=== PATIENT | male | born 1955 | race Caucasian/White ===

== ENCOUNTER 2017-12-13 16:17 | Inpatient (IN) | payer MEDICAID, OTHER ==
[~2017-12-13] VITALS: Ht 175.3 cm; Wt 99.5 kg
[2017-12-13 17:13] LABS: BASOPHILS # (AUTO) 0.5 X10'3 (0-0.2); BASOPHILS % (AUTO) 1.9 % (0-1); EOSINOPHILS # (AUTO) 0.1 X10'3 (0-0.9); EOSINOPHILS % (AUTO) 0.6 % (0-6); HEMATOCRIT 29.5 % (42.0-52.0); HEMOGLOBIN 9.7 g/dl (14.0-17.9); LYMPHOCYTES % (AUTO) 4.1 % (21-51); MEAN CORPUSCULAR HEMOGLOBIN 27.2 PG (27.0-31.0); MEAN CORPUSCULAR HGB CONC 32.8 % (33.0-36.5); MEAN CORPUSCULAR VOLUME 82.9 FL (78-98); MEAN PLATELET VOLUME 8.5 FL (7.4-10.4); MONOCYTES # (AUTO) 1.6 X10'3 (0-0.9); MONOCYTES % (AUTO) 6.7 % (2-12); NEUTROPHILS # (AUTO) 20.9 X10'3 (1.8-7.7); NEUTROPHILS % (AUTO) 86.7 % (42-75); PLATELET COUNT 259 X10'3 (140-440); RED BLOOD COUNT 3.56 X10'6 (4.70-6.10); RED CELL DISTRIBUTION WIDTH 12.9 % (11.5-14.5); WHITE BLOOD COUNT 24.1 X10'3 (4.5-11.0)
[2017-12-13 17:23] LABS: INR 1.1 INR; PROTHROMBIN TIME 11.3 SECONDS (9.0-12.0)
[2017-12-13 17:31] LABS: ALANINE AMINOTRANSFERASE 43 U/L (12-78); ALBUMIN 1.9 G/DL (3.4-5.0); ALBUMIN/GLOBULIN RATIO 0.4 (1.1-1.5); ALKALINE PHOSPHATASE 195 IU/L (46-116); ANION GAP 14 (8-16); ASPARTATE AMINO TRANSFERASE 15 U/L (10-37); BILIRUBIN,TOTAL 0.5 MG/DL (0.1-1.0); BLOOD UREA NITROGEN 57 MG/DL (7-18); BUN/CREATININE RATIO 29.5 (5.4-32.0); CHLORIDE 96 MMOL/L (99-107); CREATININE 1.93 MG/DL (0.60-1.10); GLUCOSE 271 MG/DL (70-104); POTASSIUM 3.5 MMOL/L (3.5-5.1); SODIUM 134 MMOL/L (135-145); TOTAL CARBON DIOXIDE 24.1 MMOL/L (24-32); eGFR 36 ML/MIN
[2017-12-13] MEDS ORDERED: acetaminophen 325mg tablet PO STA (17:41)
[2017-12-13] MEDS ORDERED: vancomycin/NS 1 GM ADD-VANTAGE 250 ML IV ONE (17:45)
[2017-12-13] MEDS ORDERED: piperacillin/tazo 3.375gm/50ml 50 ML IV ONE (17:45)
[2017-12-13] MEDS ORDERED: normal saline 1000ML IV soln IV ONE (17:45)
[2017-12-13] MEDS ORDERED: magnesium 4gm in 100ml NS 100 ML IV PRN (18:00)
[2017-12-13] MEDS ORDERED: mag hydrox/Alum hydrox/simeth 30ml oral suspension PO PRN (18:00)
[2017-12-13] MEDS ORDERED: acetaminophen 325mg tablet PO PRN ×2 (18:00)
[2017-12-13] MEDS ORDERED: HYDROcodone/acetaminophen 5mg/325mg tablet PO PRN (18:00)
[2017-12-13] MEDS ORDERED: potassium Cl 20 mEq SR tablet PO PRN (18:00)
[2017-12-13] MEDS ORDERED: dextrose 50%-water 50ml dispensing syringe IV PRN ×2 (18:00)
[2017-12-13] MEDS ORDERED: MESSAGE TO PHARMACY PO ONE (18:00)
[2017-12-13] MEDS ORDERED: glucagon, human recombinant 1mg kit SUBCUT PRN (18:00)
[2017-12-13] MEDS ORDERED: magnesium Cl slow-release 64mg tablet PO PRN (18:00)
[2017-12-13] MEDS ORDERED: magnesium hydroxide 30ml (MOM) UD suspension PO PRN (18:00)
[2017-12-13] MEDS ORDERED: dextrose ORAL solution 15 GM/59 ML bottle PO PRN ×2 (18:00)
[2017-12-13] MEDS ORDERED: magnesium 1gm/100ml D5W IVPB 100 ML IV PRN (18:00)
[2017-12-13] MEDS ORDERED: ondansetron/PF 4mg/2ml inj IV PRN (18:00)
[2017-12-13] MEDS ORDERED: potassium Cl 40MEQ/NS 500ml 500 ML IV PRN ×2 (18:00)
[2017-12-13] MEDS ORDERED: GABA-534 PO (18:26)
[2017-12-13] MEDS ORDERED: ATOR20TA PO (18:26)
[2017-12-13] MEDS ORDERED: SAXA5TAB PO (18:26)
[2017-12-13] MEDS ORDERED: DULO20CA50 PO (18:26)
[2017-12-13] MEDS ORDERED: SILD20TA2 PO (18:26)
[2017-12-13] MEDS ORDERED: LOSA25TA96 PO (18:26)
[2017-12-13] MEDS ORDERED: CHOL500026 PO (18:26)
[2017-12-13] MEDS ORDERED: GLIM4TAB PO (18:26)
[2017-12-13] MEDS ORDERED: [UNRECOGNIZED DRUG - CODE] TOP (18:26)
[2017-12-13] MEDS ORDERED: METF500T PO (18:26)
[2017-12-13] MEDS: normal saline 1000ml 1,000 ML IV SCH ×3 (18:47→22:11)
[2017-12-13] MEDS: piperacillin-tazo 2.25gm/50ml 50 ML IV SCH (18:47)
[2017-12-13] MEDS ORDERED: vancomycin inj 1,250 MG in normal saline 250ml IV soln 250 ML IV SCH (19:00)
[2017-12-13 19:30] LABS: HEMOGLOBIN A1C 9.9 % (4.5-6.2)
[2017-12-13 19:43] LABS: CLARITY,URINE CLOUDY (Clear); COLOR,URINE YELLOW (Yellow); GLUCOSE, URINE 250 mg/dl (Neg); KETONES,URINE NEGATIVE (Neg); LEUKOCYTE ESTERASE ,URINE NEGATIVE (Neg); NITRITES, URINE NEGATIVE (Neg); OCCULT BLOOD,URINE LARGE (Neg); PH,URINE 5.5 (4.8-8.0); PROTEIN,URINE >=300 mg/dl (Neg)
[2017-12-13 19:49] LABS: UA COLLECTION TYPE URINAL
[2017-12-13 19:54] LABS: CELLULAR CAST 0-4 /LPF (NEGATIVE)
[2017-12-13 19:55] LABS: MUCUS STRANDS FEW /LPF (Neg); RBC,URINE 20-50 /HPF (0-2); SQUAMOUS EPITHELIAL CELL,UR MODERATE /LPF (FEW); WAXY CASTS,URINE 0-3 /LPF (NEGATIVE); WBC,URINE 0-4 /HPF (0-4)
[2017-12-13 19:56] LABS: AMORPHOUS URATES 2+; BACTERIA,URINE FEW /HPF (Neg)
[2017-12-13] MEDS ORDERED: temazepam 15mg capsule PO PRN (21:00)
[2017-12-13] MEDS: atorvastatin 20mg tablet PO SCH (21:32)
[2017-12-13] MEDS: insulin glargine (Lantus) pen - multi-dose SQ SCH (22:19)
[2017-12-13 22:20] VITALS: BP 137/76
[2017-12-13] MEDS: insulin Lispro (HumaLOG) vial - multi-dose SQ SCH (22:20)
[2017-12-13] MEDS: gabapentin 400mg capsule PO SCH (23:31)
[2017-12-14] VITALS: BP 137/76
[2017-12-14] MEDS: piperacillin-tazo 2.25gm/50ml 50 ML IV SCH ×4 (02:29→19:48)
[2017-12-14 05:13] LABS: BASOPHILS % (AUTO) 0 % (0-1); EOSINOPHILS # (AUTO) 0.5 X10'3 (0-0.9); EOSINOPHILS % (AUTO) 2.8 % (0-6); HEMATOCRIT 25.8 % (42.0-52.0); HEMOGLOBIN 8.6 g/dl (14.0-17.9); LYMPHOCYTES # (AUTO) 1.4 X10'3 (1.1-4.8); LYMPHOCYTES % (AUTO) 7.5 % (21-51); MEAN CORPUSCULAR HEMOGLOBIN 27.6 PG (27.0-31.0); MEAN CORPUSCULAR HGB CONC 33.4 % (33.0-36.5); MEAN CORPUSCULAR VOLUME 82.7 FL (78-98); MEAN PLATELET VOLUME 8.5 FL (7.4-10.4); MONOCYTES # (AUTO) 1.3 X10'3 (0-0.9); MONOCYTES % (AUTO) 6.9 % (2-12); NEUTROPHILS # (AUTO) 15.2 X10'3 (1.8-7.7); NEUTROPHILS % (AUTO) 82.8 % (42-75); PLATELET COUNT 206 X10'3 (140-440); RED BLOOD COUNT 3.12 X10'6 (4.70-6.10); RED CELL DISTRIBUTION WIDTH 14.1 % (11.5-14.5); WHITE BLOOD COUNT 18.4 X10'3 (4.5-11.0)
[2017-12-14] MEDS: normal saline 1000ml 1,000 ML IV SCH (05:36)
[2017-12-14 05:42] LABS: ALANINE AMINOTRANSFERASE 33 U/L (12-78); ALBUMIN 1.5 G/DL (3.4-5.0); ALBUMIN/GLOBULIN RATIO 0.3 (1.1-1.5); ALKALINE PHOSPHATASE 171 IU/L (46-116); ANION GAP 11 (8-16); ASPARTATE AMINO TRANSFERASE 16 U/L (10-37); BILIRUBIN,TOTAL 0.4 MG/DL (0.1-1.0); BLOOD UREA NITROGEN 53 MG/DL (7-18); BUN/CREATININE RATIO 31.5 (5.4-32.0); CALCIUM 8.4 MG/DL (8.5-10.1); CHLORIDE 102 MMOL/L (99-107); CHOL/HDL RATIO 5.8 (0.00-4.99); CHOLESTEROL 93 MG/DL (0-200); CREATININE 1.68 MG/DL (0.60-1.10); GLUCOSE 171 MG/DL (70-104); HDL CHOLESTEROL 16 MG/DL (35-60); LDL CHOLESTEROL 63 MG/DL (50-100); MAGNESIUM 1.7 MG/DL (1.5-2.4); POTASSIUM 3.1 MMOL/L (3.5-5.1); SODIUM 137 MMOL/L (135-145); TOTAL CARBON DIOXIDE 23.6 MMOL/L (24-32); TOTAL PROTEIN 5.9 G/DL (6.4-8.2); TRIGLYCERIDES 88 MG/DL (20-135); eGFR 42 ML/MIN
[2017-12-14 08:00] VITALS: BP 137/68
[2017-12-14] MEDS: K and/or MAG REPLACEMENT MC SCH (08:00)
[2017-12-14] MEDS ORDERED: SAXAGLIPTIN HYDROCHLORIDE PO SCH (08:00)
[2017-12-14] MEDS: potassium Cl 20 mEq SR tablet PO PRN ×2 (09:13→16:16)
[2017-12-14] MEDS: losartan 25mg tablet PO SCH (09:13)
[2017-12-14] MEDS: gabapentin 400mg capsule PO SCH ×3 (09:13→23:21)
[2017-12-14] MEDS: duloxetine 20mg capsule.DR PO SCH (09:14)
[2017-12-14] MEDS: insulin Lispro (HumaLOG) vial - multi-dose SQ SCH ×2 (09:25→19:31)
[2017-12-14 11:00] VITALS: BP 102/58
[2017-12-14] MEDS: linagliptin 5mg tablet PO SCH (11:03)
[2017-12-14] MEDS: vancomycin inj 1,250 MG in normal saline 250ml IV soln 250 ML IV SCH ×2 (11:03→20:32)
[2017-12-14 18:00] VITALS: BP 136/67
[2017-12-14] MEDS: lactobacillus rhamnosus 10,000 MMU CELLS/CAPSULE PO SCH (19:48)
[2017-12-14] MEDS: atorvastatin 20mg tablet PO SCH (21:06)
[2017-12-14] MEDS: insulin glargine (Lantus) pen - multi-dose SQ SCH (21:09)
[2017-12-15] VITALS: BP 147/60
[2017-12-15] MEDS: piperacillin-tazo 2.25gm/50ml 50 ML IV SCH ×4 (01:59→20:08)
[2017-12-15] MEDS: normal saline 1000ml 1,000 ML IV SCH ×2 (02:02→13:46)
[2017-12-15 07:01] VITALS: BP 154/73
[2017-12-15] MEDS ORDERED: VANCOMYCIN LEVEL IV ONE (07:30)
[2017-12-15] MEDS: gabapentin 400mg capsule PO SCH ×3 (08:00→23:46)
[2017-12-15] MEDS: K and/or MAG REPLACEMENT MC SCH (08:00)
[2017-12-15] MEDS: duloxetine 20mg capsule.DR PO SCH (08:00)
[2017-12-15] MEDS: losartan 25mg tablet PO SCH (08:00)
[2017-12-15] MEDS: linagliptin 5mg tablet PO SCH (08:00)
[2017-12-15] MEDS: lactobacillus rhamnosus 10,000 MMU CELLS/CAPSULE PO SCH ×2 (08:00→20:07)
[2017-12-15 08:58] LABS: BASOPHILS % (AUTO) 0.1 % (0-1); EOSINOPHILS # (AUTO) 0.5 X10'3 (0-0.9); EOSINOPHILS % (AUTO) 3.5 % (0-6); HEMATOCRIT 26.1 % (42.0-52.0); HEMOGLOBIN 8.7 g/dl (14.0-17.9); LYMPHOCYTES # (AUTO) 1.1 X10'3 (1.1-4.8); LYMPHOCYTES % (AUTO) 7.4 % (21-51); MEAN CORPUSCULAR HEMOGLOBIN 27.4 PG (27.0-31.0); MEAN CORPUSCULAR HGB CONC 33.2 % (33.0-36.5); MEAN CORPUSCULAR VOLUME 82.6 FL (78-98); MEAN PLATELET VOLUME 8.6 FL (7.4-10.4); MONOCYTES # (AUTO) 1.2 X10'3 (0-0.9); MONOCYTES % (AUTO) 7.7 % (2-12); NEUTROPHILS # (AUTO) 12.4 X10'3 (1.8-7.7); NEUTROPHILS % (AUTO) 81.3 % (42-75); PLATELET COUNT 216 X10'3 (140-440); RED BLOOD COUNT 3.16 X10'6 (4.70-6.10); WHITE BLOOD COUNT 15.3 X10'3 (4.5-11.0)
[2017-12-15 09:12] LABS: ALANINE AMINOTRANSFERASE 38 U/L (12-78); ALBUMIN 1.5 G/DL (3.4-5.0); ALBUMIN/GLOBULIN RATIO 0.3 (1.1-1.5); ALKALINE PHOSPHATASE 216 IU/L (46-116); ANION GAP 8 (8-16); ASPARTATE AMINO TRANSFERASE 14 U/L (10-37); BILIRUBIN,TOTAL 0.4 MG/DL (0.1-1.0); BLOOD UREA NITROGEN 43 MG/DL (7-18); BUN/CREATININE RATIO 27.7 (5.4-32.0); CALCIUM 8.3 MG/DL (8.5-10.1); CHLORIDE 106 MMOL/L (99-107); CREATININE 1.55 MG/DL (0.60-1.10); GLUCOSE 80 MG/DL (70-104); MAGNESIUM 1.7 MG/DL (1.5-2.4); POTASSIUM 4.3 MMOL/L (3.5-5.1); SODIUM 141 MMOL/L (135-145); TOTAL CARBON DIOXIDE 27.5 MMOL/L (24-32); TOTAL PROTEIN 6.1 G/DL (6.4-8.2); eGFR 46 ML/MIN
[2017-12-15] MEDS: pantoprazole 40 MG vial IV SCH (09:40)
[2017-12-15] MEDS: vancomycin/NS 1 GM ADD-VANTAGE 250 ML IV SCH ×2 (09:40→22:16)
[2017-12-15 12:20] VITALS: BP 123/65
[2017-12-15] MEDS: insulin Lispro (HumaLOG) vial - multi-dose SQ SCH ×2 (13:57→19:00)
[2017-12-15 18:45] VITALS: BP 202/99
[2017-12-15] MEDS: atorvastatin 20mg tablet PO SCH (20:07)
[2017-12-15 20:13] VITALS: BP 145/82
[2017-12-15] MEDS: insulin glargine (Lantus) pen - multi-dose SQ SCH (20:49)
[2017-12-16] VITALS: BP 152/69
[2017-12-16] MEDS: piperacillin-tazo 2.25gm/50ml 50 ML IV SCH ×4 (02:08→19:07)
[2017-12-16] MEDS: normal saline 1000ml 1,000 ML IV SCH ×2 (04:27→16:16)
[2017-12-16 05:42] LABS: BASOPHILS % (AUTO) 0.1 % (0-1); EOSINOPHILS # (AUTO) 0.5 X10'3 (0-0.9); EOSINOPHILS % (AUTO) 3.2 % (0-6); HEMATOCRIT 26.1 % (42.0-52.0); HEMOGLOBIN 8.7 g/dl (14.0-17.9); LYMPHOCYTES # (AUTO) 1.2 X10'3 (1.1-4.8); LYMPHOCYTES % (AUTO) 7.3 % (21-51); MEAN CORPUSCULAR HEMOGLOBIN 27.6 PG (27.0-31.0); MEAN CORPUSCULAR HGB CONC 33.4 % (33.0-36.5); MEAN CORPUSCULAR VOLUME 82.6 FL (78-98); MEAN PLATELET VOLUME 8.9 FL (7.4-10.4); MONOCYTES # (AUTO) 1.3 X10'3 (0-0.9); MONOCYTES % (AUTO) 7.7 % (2-12); NEUTROPHILS # (AUTO) 13.6 X10'3 (1.8-7.7); NEUTROPHILS % (AUTO) 81.7 % (42-75); PLATELET COUNT 216 X10'3 (140-440); RED BLOOD COUNT 3.17 X10'6 (4.70-6.10); RED CELL DISTRIBUTION WIDTH 14.2 % (11.5-14.5); WHITE BLOOD COUNT 16.6 X10'3 (4.5-11.0)
[2017-12-16 06:12] LABS: ALANINE AMINOTRANSFERASE 34 U/L (12-78); ALBUMIN 1.4 G/DL (3.4-5.0); ALBUMIN/GLOBULIN RATIO 0.3 (1.1-1.5); ALKALINE PHOSPHATASE 245 IU/L (46-116); ANION GAP 10 (8-16); ASPARTATE AMINO TRANSFERASE 13 U/L (10-37); BILIRUBIN,TOTAL 0.3 MG/DL (0.1-1.0); BLOOD UREA NITROGEN 32 MG/DL (7-18); BUN/CREATININE RATIO 20.6 (5.4-32.0); CALCIUM 8.1 MG/DL (8.5-10.1); CHLORIDE 104 MMOL/L (99-107); CREATININE 1.55 MG/DL (0.60-1.10); GLUCOSE 175 MG/DL (70-104); MAGNESIUM 1.5 MG/DL (1.5-2.4); POTASSIUM 4.1 MMOL/L (3.5-5.1); SODIUM 137 MMOL/L (135-145); TOTAL CARBON DIOXIDE 23.4 MMOL/L (24-32); TOTAL PROTEIN 6.1 G/DL (6.4-8.2); eGFR 46 ML/MIN
[2017-12-16 07:22] VITALS: BP 157/74
[2017-12-16] MEDS: K and/or MAG REPLACEMENT MC SCH (08:00)
[2017-12-16] MEDS: losartan 25mg tablet PO SCH (08:59)
[2017-12-16] MEDS: gabapentin 400mg capsule PO SCH ×3 (08:59→23:48)
[2017-12-16] MEDS: duloxetine 20mg capsule.DR PO SCH (08:59)
[2017-12-16] MEDS: lactobacillus rhamnosus 10,000 MMU CELLS/CAPSULE PO SCH ×2 (08:59→19:10)
[2017-12-16] MEDS: linagliptin 5mg tablet PO SCH (08:59)
[2017-12-16] MEDS: pantoprazole 40 MG vial IV SCH (09:00)
[2017-12-16] MEDS: vancomycin/NS 1 GM ADD-VANTAGE 250 ML IV SCH ×2 (09:42→22:13)
[2017-12-16] MEDS: insulin Lispro (HumaLOG) vial - multi-dose SQ SCH ×3 (09:46→19:09)
[2017-12-16 11:48] VITALS: BP 155/67
[2017-12-16] MEDS: magnesium oxide 400mg tablet PO SCH ×2 (16:16→23:48)
[2017-12-16 18:00] VITALS: BP 150/66
[2017-12-16] MEDS ORDERED: VANCOMYCIN LEVEL IV ONE ×2 (18:30→21:30)
[2017-12-16] MEDS: insulin glargine (Lantus) pen - multi-dose SQ SCH (20:49)
[2017-12-16] MEDS: atorvastatin 20mg tablet PO SCH (20:51)
[2017-12-17] VITALS: BP 148/68
[2017-12-17] MEDS: piperacillin-tazo 2.25gm/50ml 50 ML IV SCH ×4 (01:26→20:00)
[2017-12-17 04:47] LABS: BASOPHILS # (AUTO) 0.1 X10'3 (0-0.2); BASOPHILS % (AUTO) 0.5 % (0-1); EOSINOPHILS # (AUTO) 0.4 X10'3 (0-0.9); EOSINOPHILS % (AUTO) 2.4 % (0-6); HEMATOCRIT 24.7 % (42.0-52.0); HEMOGLOBIN 8.3 g/dl (14.0-17.9); LYMPHOCYTES # (AUTO) 1.3 X10'3 (1.1-4.8); LYMPHOCYTES % (AUTO) 8.9 % (21-51); MEAN CORPUSCULAR HEMOGLOBIN 27.6 PG (27.0-31.0); MEAN CORPUSCULAR HGB CONC 33.5 % (33.0-36.5); MEAN CORPUSCULAR VOLUME 82.5 FL (78-98); MEAN PLATELET VOLUME 8.4 FL (7.4-10.4); MONOCYTES # (AUTO) 0.9 X10'3 (0-0.9); MONOCYTES % (AUTO) 6.3 % (2-12); NEUTROPHILS % (AUTO) 81.9 % (42-75); PLATELET COUNT 205 X10'3 (140-440); RED BLOOD COUNT 2.99 X10'6 (4.70-6.10); RED CELL DISTRIBUTION WIDTH 13.3 % (11.5-14.5); WHITE BLOOD COUNT 14.7 X10'3 (4.5-11.0)
[2017-12-17 04:55] LABS: ALANINE AMINOTRANSFERASE 29 U/L (12-78); ALBUMIN 1.3 G/DL (3.4-5.0); ALBUMIN/GLOBULIN RATIO 0.3 (1.1-1.5); ALKALINE PHOSPHATASE 215 IU/L (46-116); ANION GAP 9 (8-16); ASPARTATE AMINO TRANSFERASE 9 U/L (10-37); BILIRUBIN,TOTAL 0.3 MG/DL (0.1-1.0); BLOOD UREA NITROGEN 22 MG/DL (7-18); BUN/CREATININE RATIO 16.7 (5.4-32.0); CALCIUM 8.1 MG/DL (8.5-10.1); CHLORIDE 106 MMOL/L (99-107); CREATININE 1.32 MG/DL (0.60-1.10); GLUCOSE 115 MG/DL (70-104); MAGNESIUM 1.5 MG/DL (1.5-2.4); POTASSIUM 4.4 MMOL/L (3.5-5.1); SODIUM 137 MMOL/L (135-145); TOTAL CARBON DIOXIDE 22.1 MMOL/L (24-32); eGFR 55 ML/MIN
[2017-12-17] MEDS: normal saline 1000ml 1,000 ML IV SCH ×3 (05:37→22:00)
[2017-12-17 07:00] VITALS: BP 142/76
[2017-12-17] MEDS: pantoprazole 40 MG vial IV SCH (07:49)
[2017-12-17] MEDS: duloxetine 20mg capsule.DR PO SCH (07:49)
[2017-12-17] MEDS: gabapentin 400mg capsule PO SCH ×3 (07:49→23:42)
[2017-12-17] MEDS: losartan 25mg tablet PO SCH (07:49)
[2017-12-17] MEDS: lactobacillus rhamnosus 10,000 MMU CELLS/CAPSULE PO SCH ×2 (07:50→19:58)
[2017-12-17] MEDS: magnesium oxide 400mg tablet PO SCH ×3 (07:50→23:42)
[2017-12-17] MEDS: linagliptin 5mg tablet PO SCH (07:50)
[2017-12-17] MEDS: K and/or MAG REPLACEMENT MC SCH (08:00)
[2017-12-17] MEDS: insulin Lispro (HumaLOG) vial - multi-dose SQ SCH ×3 (09:20→18:51)
[2017-12-17 11:00] VITALS: BP 153/73
[2017-12-17] MEDS: VANCOMYCIN 750MG IV in NS 250 ML IV SCH ×2 (11:32→22:08)
[2017-12-17] MEDS: HYDROcodone/acetaminophen 10/325mg tab PO PRN ×2 (11:53→16:28)
[2017-12-17 19:00] VITALS: BP_SYST 150; BP_DIAS 75; BP_DIAS 81
[2017-12-17] MEDS: atorvastatin 20mg tablet PO SCH (19:59)
[2017-12-17] MEDS: insulin glargine (Lantus) pen - multi-dose SQ SCH (21:46)
[2017-12-18] VITALS: BP 150/75
[2017-12-18] MEDS: piperacillin-tazo 2.25gm/50ml 50 ML IV SCH ×2 (02:12→07:19)
[2017-12-18] MEDS: normal saline 1000ml 1,000 ML IV SCH (02:15)
[2017-12-18 05:45] LABS: BASOPHILS % (AUTO) 0 % (0-1); EOSINOPHILS # (AUTO) 0.4 X10'3 (0-0.9); EOSINOPHILS % (AUTO) 3.4 % (0-6); HEMATOCRIT 26.6 % (42.0-52.0); HEMOGLOBIN 8.6 g/dl (14.0-17.9); LYMPHOCYTES # (AUTO) 1.4 X10'3 (1.1-4.8); LYMPHOCYTES % (AUTO) 12.4 % (21-51); MEAN CORPUSCULAR HEMOGLOBIN 27.1 PG (27.0-31.0); MEAN CORPUSCULAR HGB CONC 32.5 % (33.0-36.5); MEAN CORPUSCULAR VOLUME 83.6 FL (78-98); MEAN PLATELET VOLUME 8.7 FL (7.4-10.4); MONOCYTES # (AUTO) 0.7 X10'3 (0-0.9); MONOCYTES % (AUTO) 6.4 % (2-12); NEUTROPHILS # (AUTO) 9.2 X10'3 (1.8-7.7); NEUTROPHILS % (AUTO) 77.8 % (42-75); PLATELET COUNT 195 X10'3 (140-440); RED BLOOD COUNT 3.18 X10'6 (4.70-6.10); RED CELL DISTRIBUTION WIDTH 13.3 % (11.5-14.5); WHITE BLOOD COUNT 11.7 X10'3 (4.5-11.0)
[2017-12-18 06:08] LABS: ALANINE AMINOTRANSFERASE 31 U/L (12-78); ALBUMIN 1.4 G/DL (3.4-5.0); ALBUMIN/GLOBULIN RATIO 0.3 (1.1-1.5); ALKALINE PHOSPHATASE 213 IU/L (46-116); ANION GAP 7 (8-16); ASPARTATE AMINO TRANSFERASE 11 U/L (10-37); BILIRUBIN,TOTAL 0.2 MG/DL (0.1-1.0); BLOOD UREA NITROGEN 21 MG/DL (7-18); BUN/CREATININE RATIO 15.2 (5.4-32.0); CALCIUM 8.4 MG/DL (8.5-10.1); CHLORIDE 106 MMOL/L (99-107); CREATININE 1.38 MG/DL (0.60-1.10); GLUCOSE 100 MG/DL (70-104); MAGNESIUM 1.6 MG/DL (1.5-2.4); SODIUM 137 MMOL/L (135-145); TOTAL CARBON DIOXIDE 23.8 MMOL/L (24-32); TOTAL PROTEIN 6.6 G/DL (6.4-8.2); eGFR 53 ML/MIN
[2017-12-18] MEDS: K and/or MAG REPLACEMENT MC SCH (07:13)
[2017-12-18] MEDS: linagliptin 5mg tablet PO SCH (07:19)
[2017-12-18] MEDS: magnesium oxide 400mg tablet PO SCH ×3 (07:19→23:01)
[2017-12-18] MEDS: duloxetine 20mg capsule.DR PO SCH (07:20)
[2017-12-18] MEDS: losartan 25mg tablet PO SCH (07:20)
[2017-12-18] MEDS: gabapentin 400mg capsule PO SCH ×3 (07:20→23:01)
[2017-12-18] MEDS: lactobacillus rhamnosus 10,000 MMU CELLS/CAPSULE PO SCH ×2 (07:20→19:43)
[2017-12-18] MEDS: pantoprazole 40mg Tablet.DR PO SCH (07:21)
[2017-12-18 07:28] VITALS: BP 179/80
[2017-12-18] MEDS: HYDROcodone/acetaminophen 10/325mg tab PO PRN ×2 (07:32→22:56)
[2017-12-18] MEDS: insulin Lispro (HumaLOG) vial - multi-dose SQ SCH ×3 (08:55→19:42)
[2017-12-18] MEDS: VANCOMYCIN 750MG IV in NS 250 ML IV SCH (09:34)
[2017-12-18 11:00] VITALS: BP 157/69
[2017-12-18] MEDS: ceFAZolin 1GM/D5W- ADD-VANTAGE 50 ML IV SCH ×2 (16:31→23:01)
[2017-12-18 20:00] VITALS: BP 221/96
[2017-12-18] MEDS: atorvastatin 20mg tablet PO SCH (20:49)
[2017-12-18] MEDS: insulin glargine (Lantus) pen - multi-dose SQ SCH (20:54)
[2017-12-18 21:00] VITALS: BP 162/96
[2017-12-18] MEDS ORDERED: VANCOMYCIN LEVEL IV ONE (21:30)
[2017-12-19] VITALS: BP 184/87
[2017-12-19 04:00] VITALS: BP 158/85
[2017-12-19] MEDS: duloxetine 20mg capsule.DR PO SCH (07:10)
[2017-12-19] MEDS: magnesium oxide 400mg tablet PO SCH ×3 (07:10→23:09)
[2017-12-19] MEDS: gabapentin 400mg capsule PO SCH ×3 (07:11→23:09)
[2017-12-19] MEDS: losartan 25mg tablet PO SCH (07:15)
[2017-12-19] MEDS: lactobacillus rhamnosus 10,000 MMU CELLS/CAPSULE PO SCH ×2 (07:15→19:54)
[2017-12-19] MEDS: linagliptin 5mg tablet PO SCH (07:15)
[2017-12-19] MEDS: pantoprazole 40mg Tablet.DR PO SCH (07:15)
[2017-12-19] MEDS: ceFAZolin 1GM/D5W- ADD-VANTAGE 50 ML IV SCH ×3 (07:16→23:09)
[2017-12-19] MEDS: K and/or MAG REPLACEMENT MC SCH (07:18)
[2017-12-19 07:26] VITALS: BP 156/68
[2017-12-19] MEDS: HYDROcodone/acetaminophen 10/325mg tab PO PRN ×3 (07:39→21:16)
[2017-12-19 11:00] VITALS: BP 126/73
[2017-12-19] MEDS: insulin Lispro (HumaLOG) vial - multi-dose SQ SCH ×3 (13:31→19:11)
[2017-12-19 20:00] VITALS: BP 156/89
[2017-12-19] MEDS: atorvastatin 20mg tablet PO SCH (20:59)
[2017-12-19] MEDS: insulin glargine (Lantus) pen - multi-dose SQ SCH (21:09)
[2017-12-20] VITALS: BP 168/67
[2017-12-20 07:03] VITALS: BP 180/86
[2017-12-20] MEDS: K and/or MAG REPLACEMENT MC SCH (08:00)
[2017-12-20] MEDS ORDERED: potassium Cl 40MEQ/NS 500ml 500 ML IV PRN ×2 (08:35)
[2017-12-20] MEDS ORDERED: potassium Cl 20 mEq SR tablet PO PRN ×2 (08:35)
[2017-12-20] MEDS ORDERED: magnesium 1gm/100ml D5W IVPB 100 ML IV PRN (08:35)
[2017-12-20] MEDS ORDERED: magnesium 4gm in 100ml NS 100 ML IV PRN (08:35)
[2017-12-20] MEDS ORDERED: magnesium Cl slow-release 64mg tablet PO PRN (08:35)
[2017-12-20] MEDS: gabapentin 400mg capsule PO SCH (08:40)
[2017-12-20] MEDS: duloxetine 20mg capsule.DR PO SCH (08:40)
[2017-12-20] MEDS: linagliptin 5mg tablet PO SCH (08:40)
[2017-12-20] MEDS: magnesium oxide 400mg tablet PO SCH (08:41)
[2017-12-20] MEDS: lactobacillus rhamnosus 10,000 MMU CELLS/CAPSULE PO SCH (08:42)
[2017-12-20] MEDS: pantoprazole 40mg Tablet.DR PO SCH (08:42)
[2017-12-20] MEDS: losartan 25mg tablet PO SCH (08:42)
[2017-12-20] MEDS: HYDROcodone/acetaminophen 10/325mg tab PO PRN (08:42)
[2017-12-20] MEDS: ceFAZolin 1GM/D5W- ADD-VANTAGE 50 ML IV SCH (08:42)
[2017-12-20 09:44] LABS: MAGNESIUM 1.4 MG/DL (1.5-2.4); POTASSIUM 4.2 MMOL/L (3.5-5.1)
== END 2017-12-20 10:15 | disposition short-term general hospital (02) | DRG 871 ==
LOC: ER 16:17 → ED HOLD 18:00 → SUR 3N 22:00
PROVIDERS: ADMIT Family Medicine; ATTEND Family Medicine
PROC: 5A09357 Assistance with Respiratory Ventilation, Less than 24 Consecutive Hours, Continuous Positive Airway Pressure (ICD-10-PCS; principal; 2017-12-14)
DX: A41.9 Sepsis, unspecified organism (principal); N17.0 Acute kidney failure with tubular necrosis; L03.115 Cellulitis of right lower limb; E87.1 Hypo-osmolality and hyponatremia; E44.0 Moderate protein-calorie malnutrition; L97.419 Non-pressure chronic ulcer of right heel and midfoot with unspecified severity; M86.171 Other acute osteomyelitis, right ankle and foot; E11.621 Type 2 diabetes mellitus with foot ulcer; E11.42 Type 2 diabetes mellitus with diabetic polyneuropathy; G47.33 Obstructive sleep apnea (adult) (pediatric); E11.22 Type 2 diabetes mellitus with diabetic chronic kidney disease; L97.529 Non-pressure chronic ulcer of other part of left foot with unspecified severity; I12.9 Hypertensive chronic kidney disease with stage 1 through stage 4 chronic kidney disease, or unspecified chronic kidney disease; E11.610 Type 2 diabetes mellitus with diabetic neuropathic arthropathy; E11.69 Type 2 diabetes mellitus with other specified complication; E66.9 Obesity, unspecified; E78.5 Hyperlipidemia, unspecified; E83.42 Hypomagnesemia; N18.3 Chronic kidney disease, stage 3 (moderate); Z60.2 Problems related to living alone; Z91.14 Patient's other noncompliance with medication regimen; Z79.899 Other long term (current) drug therapy; Z68.32 Body mass index [BMI] 32.0-32.9, adult
CPT/HCPCS: 36415; 70140; 73630; 73718; 80053; 80061; 80202; 81001; 82948; 83036; 83605; 83735; 84132; 84145; 85025; 85610; 87040; 87070; 87077; 87186; 93005; 93926; 94660; 94760; 97110; 97116; 97161; 97530; 99285; A6212; A6213; A6223; A6255; A6258; A6446; A6449; C9113; J0690; J1815; J2405; J2543; J3370; J7030

== ENCOUNTER 2018-04-26 16:24 | Inpatient (IN) | payer OTHER ==
[~2018-04-26] VITALS: Ht 177.8 cm; Wt 110.0 kg
[~2018-04-26 16:24] MED LIST: ATOR20TA PO; CHOL500026 PO; DULO20CA50 PO; GABA-534 PO; GLIM4TAB PO; LOSA25TA96 PO; METF500T PO; SAXA5TAB PO; SILD20TA2 PO; [UNRECOGNIZED DRUG - CODE] TOP
[2018-04-26] MEDS ORDERED: CefTRIAXone 2gm/D5W 50ml 50 ML IV ONE (16:45)
[2018-04-26 17:17] LABS: BASOPHILS # (AUTO) 0.1 X10'3 (0-0.2); BASOPHILS % (AUTO) 1.2 % (0-1); EOSINOPHILS # (AUTO) 0.3 X10'3 (0-0.9); EOSINOPHILS % (AUTO) 2.8 % (0-6); HEMATOCRIT 30.5 % (42.0-52.0); HEMOGLOBIN 10.2 g/dl (14.0-17.9); LYMPHOCYTES # (AUTO) 1.2 X10'3 (1.1-4.8); LYMPHOCYTES % (AUTO) 12.1 % (21-51); MEAN CORPUSCULAR HEMOGLOBIN 28.2 PG (27.0-31.0); MEAN CORPUSCULAR HGB CONC 33.5 % (33.0-36.5); MEAN CORPUSCULAR VOLUME 84.3 FL (78-98); MEAN PLATELET VOLUME 8.2 FL (7.4-10.4); MONOCYTES # (AUTO) 0.6 X10'3 (0-0.9); MONOCYTES % (AUTO) 6.2 % (2-12); NEUTROPHILS # (AUTO) 7.5 X10'3 (1.8-7.7); NEUTROPHILS % (AUTO) 77.7 % (42-75); PLATELET COUNT 140 X10'3 (140-440); RED BLOOD COUNT 3.62 X10'6 (4.70-6.10); RED CELL DISTRIBUTION WIDTH 13.1 % (11.5-14.5); WHITE BLOOD COUNT 9.7 X10'3 (4.5-11.0)
[2018-04-26 17:31] LABS: PARTIAL THROMBOPLASTIN TIME 29 SECONDS (22-32); PROTHROMBIN TIME 10.6 SECONDS (9.0-12.0)
[2018-04-26 17:35] LABS: ALANINE AMINOTRANSFERASE 26 U/L (12-78); ALBUMIN 2.9 G/DL (3.4-5.0); ALBUMIN/GLOBULIN RATIO 0.8 (1.1-1.5); ALKALINE PHOSPHATASE 177 IU/L (46-116); ANION GAP 11 (8-16); ASPARTATE AMINO TRANSFERASE 10 U/L (10-37); BILIRUBIN,TOTAL 0.2 MG/DL (0.1-1.0); BLOOD UREA NITROGEN 50 MG/DL (7-18); BUN/CREATININE RATIO 23.6 (5.4-32.0); CALCIUM 8.2 MG/DL (8.5-10.1); CHLORIDE 106 MMOL/L (99-107); CREATININE 2.12 MG/DL (0.60-1.10); GLUCOSE 170 MG/DL (70-104); MAGNESIUM 1.6 MG/DL (1.5-2.4); POTASSIUM 5.1 MMOL/L (3.5-5.1); SODIUM 139 MMOL/L (135-145); TOTAL CARBON DIOXIDE 22.1 MMOL/L (24-32); TOTAL PROTEIN 6.7 G/DL (6.4-8.2); eGFR 32 ML/MIN
[2018-04-26] MEDS ORDERED: normal saline 1000ML IV soln IVB ONE (17:45)
--- NOTE | 2018-04-26 18:00 | NUR ---
Per Dr. Pacheco, he is done admitting patients and would like us to page Dr. Caceres at 1900
[2018-04-26] MEDS ORDERED: temazepam 15mg capsule PO PRN (21:00)
--- NOTE | 2018-04-26 21:04 | NUR ---
Pt reports the hospitalist was in to see him. Awaiting admission orders. Reports pain to his low back from lying on the gurney, 8 otu of 10. Also reports some pain to the right foot, but is is mild. Med rec partially completed, as Pt reports he takes another diabetic pin in the am and he is unsure what it is. His meds are filled at the [facility]. I told him we will try to contact [facility] in the am to further update his med rec. Pt is polite and cooperative. He reports he is currently living at the [place], as he recently broke up with his girlfriend and he had been living with her. He has recently been dc'd from [facility] and has no housing and it is difficult for himi to work on getting housing d/t his medcal problems with his foot infection.
[2018-04-26] MEDS ORDERED: acetaminophen 325mg tablet PO PRN ×2 (21:05)
[2018-04-26] MEDS ORDERED: magnesium hydroxide 30ml (MOM) UD suspension PO PRN (21:05)
[2018-04-26] MEDS ORDERED: ondansetron/PF 4mg/2ml inj IV PRN (21:05)
[2018-04-26] MEDS ORDERED: mag hydrox/Alum hydrox/simeth 30ml oral suspension PO PRN (21:05)
[2018-04-26] MEDS ORDERED: morphine 4 MG/ML inj SYRINge IV PRN (21:05)
[2018-04-26] MEDS ORDERED: acetaminophen 650mg rectal suppository RC PRN (21:05)
[2018-04-26] MEDS ORDERED: diphenhydrAMINE 25mg capsule PO PRN (21:05)
[2018-04-26] MEDS ORDERED: bisacodyl 10mg suppository rectal RC PRN (21:05)
[2018-04-26] MEDS ORDERED: metoclopramide 5 mg/ml inj IV PRN (21:05)
[2018-04-26] MEDS ORDERED: HYDROmorphone 1 mg/ml syringe IV PRN (21:05)
[2018-04-26] MEDS ORDERED: diphenhydrAMINE 50 mg/ml inj IV PRN (21:05)
[2018-04-26] MEDS ORDERED: MESSAGE TO PHARMACY PO ONE (21:10)
[2018-04-26] MEDS ORDERED: dextrose ORAL solution 15 GM/59 ML bottle PO PRN (21:10)
[2018-04-26] MEDS ORDERED: dextrose 50%-water 50ml dispensing syringe IV PRN ×2 (21:10)
[2018-04-26] MEDS ORDERED: glucagon, human recombinant 1mg kit SUBCUT PRN (21:10)
[2018-04-26] MEDS: piperacillin/tazo 4.5gm/100ml 100 ML IV SCH (22:27)
[2018-04-26] MEDS: normal saline 1000ml 1,000 ML IV SCH (22:27)
[2018-04-27] MEDS: gabapentin 400mg capsule PO SCH ×3 (00:14→16:38)
[2018-04-27 00:15] VITALS: BP 134/92
--- NOTE | 2018-04-27 00:30 | NUR ---
Patient arrived on unit via gurney. Alert and oriented. Patient belongings at bedside. Vitals stable. Fluids running. On tele #[id number].
[2018-04-27 06:00] VITALS: BP 130/66
[2018-04-27] MEDS: piperacillin/tazo 4.5gm/100ml 100 ML IV SCH ×2 (06:00→16:38)
[2018-04-27 06:39] LABS: BASOPHILS # (AUTO) 0.1 X10'3 (0-0.2); BASOPHILS % (AUTO) 0.9 % (0-1); EOSINOPHILS # (AUTO) 0.3 X10'3 (0-0.9); EOSINOPHILS % (AUTO) 4.7 % (0-6); HEMATOCRIT 27.5 % (42.0-52.0); LYMPHOCYTES # (AUTO) 1.2 X10'3 (1.1-4.8); LYMPHOCYTES % (AUTO) 17.2 % (21-51); MEAN CORPUSCULAR HEMOGLOBIN 27.3 PG (27.0-31.0); MEAN CORPUSCULAR HGB CONC 32.8 % (33.0-36.5); MONOCYTES # (AUTO) 0.7 X10'3 (0-0.9); MONOCYTES % (AUTO) 9.7 % (2-12); NEUTROPHILS # (AUTO) 4.6 X10'3 (1.8-7.7); NEUTROPHILS % (AUTO) 67.5 % (42-75); PLATELET COUNT 115 X10'3 (140-440); RED BLOOD COUNT 3.31 X10'6 (4.70-6.10); RED CELL DISTRIBUTION WIDTH 14.2 % (11.5-14.5); WHITE BLOOD COUNT 6.8 X10'3 (4.5-11.0)
--- NOTE | 2018-04-27 06:41 | NUR ---
PATIENT REPORT GIVEN TO JORGE HICKS AND ELAINE WING.
[2018-04-27 06:53] LABS: ALANINE AMINOTRANSFERASE 22 U/L (12-78); ALBUMIN 2.4 G/DL (3.4-5.0); ALBUMIN/GLOBULIN RATIO 0.7 (1.1-1.5); ALKALINE PHOSPHATASE 152 IU/L (46-116); ANION GAP 10 (8-16); ASPARTATE AMINO TRANSFERASE 8 U/L (10-37); BILIRUBIN,TOTAL 0.1 MG/DL (0.1-1.0); BLOOD UREA NITROGEN 44 MG/DL (7-18); BUN/CREATININE RATIO 24.9 (5.4-32.0); CALCIUM 7.7 MG/DL (8.5-10.1); CHLORIDE 111 MMOL/L (99-107); CHOL/HDL RATIO 4.6 (0.00-4.99); CHOLESTEROL 137 MG/DL (0-200); CREATININE 1.77 MG/DL (0.60-1.10); GLUCOSE 204 MG/DL (70-104); HDL CHOLESTEROL 30 MG/DL (35-60); LDL CHOLESTEROL 94 MG/DL (50-100); POTASSIUM 4.6 MMOL/L (3.5-5.1); SODIUM 142 MMOL/L (135-145); TOTAL CARBON DIOXIDE 21.2 MMOL/L (24-32); TOTAL PROTEIN 5.9 G/DL (6.4-8.2); TRIGLYCERIDES 85 MG/DL (20-135); eGFR 39 ML/MIN
[2018-04-27] MEDS: normal saline 1000ml 1,000 ML IV SCH (07:05)
[2018-04-27] MEDS: losartan 25mg tablet PO SCH (07:38)
[2018-04-27] MEDS: docusate sod 100mg capsule PO SCH ×2 (07:38→21:08)
[2018-04-27] MEDS: heparin, porcine 5000 units/ml vial SQ SCH ×2 (07:39→21:09)
[2018-04-27] MEDS: duloxetine 20mg capsule.DR PO SCH (07:39)
[2018-04-27] MEDS: aspirin 81mg tab.chew PO SCH (07:39)
[2018-04-27] MEDS ORDERED: vancomycin/NS 1 GM ADD-VANTAGE 250 ML IV SCH (08:00)
[2018-04-27 10:00] VITALS: BP 176/77
[2018-04-27] MEDS: insulin Lispro (HumaLOG) vial - multi-dose SQ SCH (10:04)
--- NOTE | 2018-04-27 11:06 | NUR ---
PAGER ID: [phone] MESSAGE: Aylin 62Vitaly Barlow in [id number]- pain 12/01 only iv pain meds ordered, Melanie Kim has worked in the past, can we have that? Also, ok to send wound culture? Thanks Addendum: 04/27/18 at 1114 by Amanda Cristina RN MD ordered melanie Kim and ok'd the culture
[2018-04-27] MEDS: HYDROcodone/acetaminophen 10/325mg tab PO PRN ×2 (11:51→22:19)
[2018-04-27] MEDS: dextrose ORAL solution 15 GM/59 ML bottle PO PRN ×2 (12:35→13:02)
--- NOTE | 2018-04-27 15:46 | NUR ---
Initial: Pt admitted with rt foot cellulitis. Pt with A1c 7.[address] given written and verbal DM ed 12/14/17 with A1c 9.9. Pt seen this visit states he has made changes to his diet like monitoring CHO intake and cutting soda out of his diet in order to better manage his DM. Pt given written and verbal protein and DM ed with referral to outpatient DM class and RD contact information. Pt currently on CHO controlled diet with documented PO intake 100% meeting nutrient needs. Pt requests double protein at meals, d/w dietary. [facility] 04/25. Will continue to follow. Recommendations: 1) Continue with CHO controlled diet 2) Double protein TID 3) Wt per rx Addendum: 04/27/18 at [address] Amended: Links added.
[2018-04-27 18:00] VITALS: BP 153/73
--- NOTE | 2018-04-27 18:29 | NUR ---
PATIENT REPORT RECEIVED FROM JORGE HICKS.
[2018-04-27] MEDS: atorvastatin 20mg tablet PO SCH (21:08)
[2018-04-27] MEDS: lactobacillus rhamnosus 10,000 MMU CELLS/CAPSULE PO SCH (21:08)
[2018-04-27] MEDS: famotidine 20mg tablet PO SCH (21:08)
[2018-04-27] MEDS: linezolid 600mg/300ml PREMIX 300 ML IV SCH (21:09)
[2018-04-27 22:00] VITALS: BP 177/74
[2018-04-28] MEDS: gabapentin 400mg capsule PO SCH ×3 (00:40→16:08)
[2018-04-28] MEDS: piperacillin/tazo 4.5gm/100ml 100 ML IV SCH ×4 (01:15→21:14)
[2018-04-28] MEDS: hydrALAZINE 20mg/ml inj. IV PRN ×2 (01:16→17:02)
[2018-04-28 06:00] VITALS: BP 148/67
--- NOTE | 2018-04-28 06:12 | NUR ---
PATIENT REPORT GIVEN TO LINDEN HICKS.
--- NOTE | 2018-04-28 06:27 | NUR ---
I have received patient report from ANJUM Ortiz RN
[2018-04-28 07:31] VITALS: BP 131/55
[2018-04-28] MEDS: docusate sod 100mg capsule PO SCH ×2 (08:05→19:58)
[2018-04-28] MEDS: HYDROcodone/acetaminophen 10/325mg tab PO PRN ×2 (08:05→21:14)
[2018-04-28] MEDS: aspirin 81mg tab.chew PO SCH (08:05)
[2018-04-28] MEDS: lactobacillus rhamnosus 10,000 MMU CELLS/CAPSULE PO SCH ×2 (08:05→19:58)
[2018-04-28] MEDS: heparin, porcine 5000 units/ml vial SQ SCH ×2 (08:06→19:58)
[2018-04-28] MEDS: losartan 25mg tablet PO SCH (08:06)
[2018-04-28] MEDS: duloxetine 20mg capsule.DR PO SCH (08:06)
[2018-04-28] MEDS: linezolid 600mg/300ml PREMIX 300 ML IV SCH (08:09)
[2018-04-28 08:25] LABS: BASOPHILS % (AUTO) 0.5 % (0-1); EOSINOPHILS # (AUTO) 0.3 X10'3 (0-0.9); EOSINOPHILS % (AUTO) 4.3 % (0-6); HEMATOCRIT 29.7 % (42.0-52.0); HEMOGLOBIN 9.9 g/dl (14.0-17.9); LYMPHOCYTES # (AUTO) 0.8 X10'3 (1.1-4.8); LYMPHOCYTES % (AUTO) 10.5 % (21-51); MEAN CORPUSCULAR HEMOGLOBIN 27.9 PG (27.0-31.0); MEAN CORPUSCULAR HGB CONC 33.5 % (33.0-36.5); MEAN CORPUSCULAR VOLUME 83.1 FL (78-98); MEAN PLATELET VOLUME 8.6 FL (7.4-10.4); MONOCYTES # (AUTO) 0.7 X10'3 (0-0.9); MONOCYTES % (AUTO) 9.1 % (2-12); NEUTROPHILS # (AUTO) 5.5 X10'3 (1.8-7.7); NEUTROPHILS % (AUTO) 75.6 % (42-75); PLATELET COUNT 123 X10'3 (140-440); RED BLOOD COUNT 3.57 X10'6 (4.70-6.10); RED CELL DISTRIBUTION WIDTH 14.3 % (11.5-14.5); WHITE BLOOD COUNT 7.3 X10'3 (4.5-11.0)
[2018-04-28 08:39] LABS: ALANINE AMINOTRANSFERASE 22 U/L (12-78); ALBUMIN 2.7 G/DL (3.4-5.0); ALBUMIN/GLOBULIN RATIO 0.7 (1.1-1.5); ALKALINE PHOSPHATASE 137 IU/L (46-116); ANION GAP 12 (8-16); ASPARTATE AMINO TRANSFERASE 8 U/L (10-37); BILIRUBIN,TOTAL 0.3 MG/DL (0.1-1.0); BLOOD UREA NITROGEN 37 MG/DL (7-18); BUN/CREATININE RATIO 20.1 (5.4-32.0); CALCIUM 8.4 MG/DL (8.5-10.1); CHLORIDE 108 MMOL/L (99-107); CREATININE 1.84 MG/DL (0.60-1.10); GLUCOSE 131 MG/DL (70-104); POTASSIUM 4.4 MMOL/L (3.5-5.1); SODIUM 142 MMOL/L (135-145); TOTAL CARBON DIOXIDE 22.3 MMOL/L (24-32); TOTAL PROTEIN 6.4 G/DL (6.4-8.2); eGFR 38 ML/MIN
[2018-04-28 10:00] VITALS: BP 141/63
[2018-04-28] MEDS: insulin Lispro (HumaLOG) vial - multi-dose SQ SCH ×2 (13:27→19:53)
--- NOTE | 2018-04-28 14:40 | NUR ---
Zyvox diet ed: Pt receiving Zyvox, seen at bedside given written and verbal low tyramine nutrition therapy education. Pt already with RD contact information. Will remain available. Addendum: 04/28/18 at [address] Amended: Links added.
[2018-04-28] MEDS: normal saline 1000ml 1,000 ML IV SCH ×3 (16:08→22:44)
[2018-04-28 18:00] VITALS: BP 171/78
--- NOTE | 2018-04-28 18:22 | NUR ---
I gave patient report to Piper Ortiz RN
--- NOTE | 2018-04-28 18:47 | NUR ---
PATIENT REPORT RECEIVED FROM LINDEN HICKS.
[2018-04-28] MEDS: linezolid 600mg tablet PO SCH (19:58)
[2018-04-28] MEDS: atorvastatin 20mg tablet PO SCH (19:58)
[2018-04-28] MEDS: famotidine 20mg tablet PO SCH (19:59)
[2018-04-28 22:00] VITALS: BP 161/80
[2018-04-29] MEDS: gabapentin 400mg capsule PO SCH ×2 (00:16→09:10)
[2018-04-29] MEDS: hydrALAZINE 20mg/ml inj. IV PRN ×2 (00:16→02:48)
[2018-04-29] MEDS: HYDROcodone/acetaminophen 10/325mg tab PO PRN (03:08)
--- NOTE | 2018-04-29 05:21 | NUR ---
PATIENT HAS HIGH BP IN THE 170S. CALLED HOSPITALIST. GIVE HYDRALAZINE 10MG EARLY.
[2018-04-29] MEDS: piperacillin/tazo 4.5gm/100ml 100 ML IV SCH (05:51)
--- NOTE | 2018-04-29 06:10 | NUR ---
Patient in room [facility]TH[facility] 4014. I have received report from FABIOLA Saldaña and had the opportunity to ask questions and assume patient care.
--- NOTE | 2018-04-29 06:24 | NUR ---
PATIENT REPORT GIVEN TO DOROTEO HICKS.
[2018-04-29 06:30] VITALS: BP 139/61
[2018-04-29 07:01] LABS: BASOPHILS % (AUTO) 0.3 % (0-1); EOSINOPHILS # (AUTO) 0.3 X10'3 (0-0.9); EOSINOPHILS % (AUTO) 4.2 % (0-6); HEMATOCRIT 28.5 % (42.0-52.0); HEMOGLOBIN 9.5 g/dl (14.0-17.9); LYMPHOCYTES # (AUTO) 0.7 X10'3 (1.1-4.8); LYMPHOCYTES % (AUTO) 10.1 % (21-51); MEAN CORPUSCULAR HEMOGLOBIN 27.6 PG (27.0-31.0); MEAN CORPUSCULAR HGB CONC 33.3 % (33.0-36.5); MEAN CORPUSCULAR VOLUME 82.9 FL (78-98); MEAN PLATELET VOLUME 8.2 FL (7.4-10.4); MONOCYTES # (AUTO) 0.5 X10'3 (0-0.9); MONOCYTES % (AUTO) 8.2 % (2-12); NEUTROPHILS % (AUTO) 77.2 % (42-75); PLATELET COUNT 112 X10'3 (140-440); RED BLOOD COUNT 3.43 X10'6 (4.70-6.10); RED CELL DISTRIBUTION WIDTH 14.2 % (11.5-14.5); WHITE BLOOD COUNT 6.5 X10'3 (4.5-11.0)
[2018-04-29 07:15] LABS: ALANINE AMINOTRANSFERASE 18 U/L (12-78); ALBUMIN 2.4 G/DL (3.4-5.0); ALBUMIN/GLOBULIN RATIO 0.7 (1.1-1.5); ALKALINE PHOSPHATASE 126 IU/L (46-116); ANION GAP 14 (8-16); ASPARTATE AMINO TRANSFERASE 8 U/L (10-37); BILIRUBIN,TOTAL 0.2 MG/DL (0.1-1.0); BLOOD UREA NITROGEN 34 MG/DL (7-18); BUN/CREATININE RATIO 19.9 (5.4-32.0); CALCIUM 8.1 MG/DL (8.5-10.1); CHLORIDE 106 MMOL/L (99-107); CREATININE 1.71 MG/DL (0.60-1.10); GLUCOSE 165 MG/DL (70-104); POTASSIUM 4.3 MMOL/L (3.5-5.1); SODIUM 141 MMOL/L (135-145); TOTAL CARBON DIOXIDE 21.5 MMOL/L (24-32); eGFR 41 ML/MIN
[2018-04-29] MEDS: losartan 25mg tablet PO SCH (09:09)
[2018-04-29] MEDS: docusate sod 100mg capsule PO SCH (09:09)
[2018-04-29] MEDS: lactobacillus rhamnosus 10,000 MMU CELLS/CAPSULE PO SCH (09:10)
[2018-04-29] MEDS: duloxetine 20mg capsule.DR PO SCH (09:10)
[2018-04-29] MEDS: linezolid 600mg tablet PO SCH (09:10)
[2018-04-29] MEDS: aspirin 81mg tab.chew PO SCH (09:11)
[2018-04-29] MEDS: heparin, porcine 5000 units/ml vial SQ SCH (09:13)
[2018-04-29] MEDS: insulin Lispro (HumaLOG) vial - multi-dose SQ SCH (09:21)
[2018-04-29 10:00] VITALS: BP 158/69
[2018-04-29] MEDS ORDERED: clindamycin 600mg/D5W 50ml 50 ML IV SCH (10:30)
[2018-04-29] MEDS ORDERED: levoFLOXACIN-Levaquin 500mg/D5 100 ML IV SCH (10:30)
[2018-04-29] MEDS: normal saline 1000ml 1,000 ML IV SCH (11:28)
[2018-04-29] MEDS ORDERED: DOCU-28 PO (13:13)
[2018-04-29] MEDS ORDERED: HYDR-4383 PO (13:13)
[2018-04-29] MEDS ORDERED: CLIN-5 PO (13:13)
[2018-04-29] MEDS ORDERED: LEVO500T2 PO (13:13)
--- NOTE | 2018-04-29 15:24 | NUR ---
Gave small report to FABIOLA Tavarez because patient is going to be discharged.
[2018-04-29] MEDS ORDERED: VANCOMYCIN LEVEL IV ONE (22:30)
== END 2018-04-29 16:09 | disposition home health service (06) | DRG 565 ==
LOC: ER 16:24 → ED HOLD 21:05 → ORTHO 4S 23:54
PROVIDERS: ADMIT Family Medicine; ATTEND Internal Medicine
DX: T87.43 Infection of amputation stump, right lower extremity (principal); L03.115 Cellulitis of right lower limb; N17.9 Acute kidney failure, unspecified; N28.0 Ischemia and infarction of kidney; E86.0 Dehydration; E11.51 Type 2 diabetes mellitus with diabetic peripheral angiopathy without gangrene; I12.9 Hypertensive chronic kidney disease with stage 1 through stage 4 chronic kidney disease, or unspecified chronic kidney disease; E11.22 Type 2 diabetes mellitus with diabetic chronic kidney disease; E11.621 Type 2 diabetes mellitus with foot ulcer; E11.65 Type 2 diabetes mellitus with hyperglycemia; L97.519 Non-pressure chronic ulcer of other part of right foot with unspecified severity; N18.3 Chronic kidney disease, stage 3 (moderate); Y83.5 Amputation of limb(s) as the cause of abnormal reaction of the patient, or of later complication, without mention of misadventure at the time of the procedure; Z59.0 Homelessness; Z91.19 Patient's noncompliance with other medical treatment and regimen; Z79.899 Other long term (current) drug therapy; Y92.89 Other specified places as the place of occurrence of the external cause; Z56.0 Unemployment, unspecified
CPT/HCPCS: 36415; 73630; 73700; 73718; 80053; 80061; 82948; 83036; 83605; 83735; 83880; 84100; 84145; 85025; 85610; 85730; 87040; 87070; 87075; 87077; 87186; 96365; 97116; 97161; 97530; 99285; G0378; J0360; J0696; J1644; J1956; J2020; J2270; J2543; J3370; J3490; J7030

== ENCOUNTER 2022-05-09 06:51 | Emergency (ER) | payer OTHER, MEDICARE ==
[~2022-05-09] VITALS: Ht 175.3 cm; Wt 120.0 kg
[~2022-05-09 06:51] MED LIST changes: +CLIN-91 PO; +DOCU-28 PO; +HYDR-4383 PO; -METF500T PO; -SAXA5TAB PO; -SILD20TA2 PO; -[UNRECOGNIZED DRUG - CODE] TOP
[2022-05-09] MEDS ORDERED: normal saline 1000ML IV soln IVB ONE (07:05)
[2022-05-09 07:54] LABS: BASOPHILS # (AUTO) 0.1 X10'3 (0-0.2); BASOPHILS % (AUTO) 0.5 % (0-1); EOSINOPHILS % (AUTO) 0.1 % (0-6); HEMATOCRIT 34.1 % (42.0-52.0); HEMOGLOBIN 11.3 g/dl (14.0-17.9); LYMPHOCYTES # (AUTO) 0.5 X10'3 (1.1-4.8); LYMPHOCYTES % (AUTO) 4.5 % (21-51); MEAN CORPUSCULAR HEMOGLOBIN 28.7 PG (27.0-31.0); MEAN CORPUSCULAR HGB CONC 33.1 g/dL (33.0-36.5); MEAN CORPUSCULAR VOLUME 86.5 FL (78-98); MEAN PLATELET VOLUME 8.8 FL (7.4-10.4); MONOCYTES # (AUTO) 0.3 X10'3 (0-0.9); MONOCYTES % (AUTO) 2.7 % (2-12); NEUTROPHILS # (AUTO) 10.9 X10'3 (1.8-7.7); NEUTROPHILS % (AUTO) 92.2 % (42-75); PLATELET COUNT 145 X10'3 (140-440); RED BLOOD COUNT 3.94 X10'6 (4.70-6.10); RED CELL DISTRIBUTION WIDTH 14.4 % (11.5-14.5); WHITE BLOOD COUNT 11.8 X10'3 (4.5-11.0)
[2022-05-09 08:21] LABS: ALANINE AMINOTRANSFERASE 19 U/L (12-78); ALBUMIN 3.9 G/DL (3.4-5.0); ALBUMIN/GLOBULIN RATIO 0.8 (1.1-1.5); ALKALINE PHOSPHATASE 138 IU/L (46-116); ANION GAP 22 (8-16); ASPARTATE AMINO TRANSFERASE 8 U/L (10-37); BILIRUBIN,TOTAL 0.7 MG/DL (0.1-1.0); BLOOD UREA NITROGEN 135 MG/DL (7-18); BUN/CREATININE RATIO 24.9 (5.4-32.0); CALCIUM 8.6 MG/DL (8.5-10.1); CHLORIDE 95 MMOL/L (99-107); CREATININE 5.42 MG/DL (0.60-1.10); GLUCOSE 354 MG/DL (70-104); POTASSIUM 3.4 MMOL/L (3.5-5.1); SODIUM 136 MMOL/L (135-145); TOTAL PROTEIN 8.7 G/DL (6.4-8.2); eGFR 11 ML/MIN
[2022-05-09] MEDS ORDERED: metoclopramide 5 mg/ml inj IV ONE (08:25)
[2022-05-09] MEDS ORDERED: ondansetron/PF 4mg/2ml inj IV ONE ×2 (08:25→13:35)
[2022-05-09] MEDS ORDERED: losartan 50mg tablet PO ONE (09:00)
[2022-05-09 09:18] LABS: CLARITY,URINE CLEAR (Clear); COLOR,URINE YELLOW (Yellow); GLUCOSE, URINE 500 mg/dl (Neg); KETONES,URINE NEGATIVE (Neg); LEUKOCYTE ESTERASE ,URINE NEGATIVE (Neg); NITRITES, URINE NEGATIVE (Neg); OCCULT BLOOD,URINE TRACE-INTACT (Neg); PROTEIN,URINE 100 mg/dl (Neg); UROBILINOGEN,URINE 0.2 E.U/dL (0.2-1.0)
[2022-05-09 09:24] LABS: UA COLLECTION TYPE VOIDED
[2022-05-09 09:25] LABS: BACTERIA,URINE NONE SEEN /HPF (Neg); RBC,URINE 0-2 /HPF (0-2); SQUAMOUS EPITHELIAL CELL,UR FEW /LPF (FEW); WBC,URINE 0-4 /HPF (0-4)
--- NOTE | 2022-05-09 10:37 | NUR ---
pt resting on ER eh. He reports "I took a little nap" - no vomiting since reglan and zofran were administered. pt updated on plan of care. vitals updated
[2022-05-09] MEDS ORDERED: insulin regular, human 10 units/0.1 ml syringe SQ ONE (13:10)
--- NOTE | 2022-05-09 13:20 | NUR ---
pt up for d\c but still having nausea and pain. MD notified and will order something.
[2022-05-09] MEDS ORDERED: METO-292 PO (13:23)
[2022-05-09] MEDS ORDERED: DICY10CA88 PO (13:23)
[2022-05-09] MEDS ORDERED: morphine 4 MG/ML inj SYRINge IV ONE (13:35)
[2022-05-09 13:50] VITALS: BP 162/63
== END 2022-05-09 14:24 | disposition home or self-care (01) ==
LOC: ER 06:52
DX: K30 Functional dyspepsia (principal); E13.22 Other specified diabetes mellitus with diabetic chronic kidney disease; I12.0 Hypertensive chronic kidney disease with stage 5 chronic kidney disease or end stage renal disease; N18.6 End stage renal disease; Z56.0 Unemployment, unspecified; Z79.899 Other long term (current) drug therapy
CPT/HCPCS: 36415; 71045; 74176; 80053; 81001; 82948; 83880; 84484; 85025; 93005; 96361; 96372; 96374; 96375; 96376; 99285; J1815; J2270; J2405; J2765; J7030